=== PATIENT | male | born 1990 | race Caucasian/White ===

== ENCOUNTER 2020-08-17 18:45 | Emergency (ER) | payer OTHER ==
[~2020-08-17] VITALS: Ht 157.5 cm; Wt 74.8 kg
[2020-08-17 18:47] VITALS: BP 160/96
[2020-08-17] MEDS ORDERED: KETOROLAC 30 MG/ML VIAL IM ONE (19:10)
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
[2020-08-17 21:11] VITALS: BP 160/96
== END 2020-08-17 21:11 | disposition home or self-care (01) ==
LOC: MED 18:45
DX: S70.02XA Contusion of left hip, initial encounter (principal); V89.2XXA Person injured in unspecified motor-vehicle accident, traffic, initial encounter; Y93.89 Activity, other specified; Y92.89 Other specified places as the place of occurrence of the external cause; Y99.8 Other external cause status
CPT/HCPCS: 73502; 99283